=== PATIENT | male | born 1975 | race Two or more races ===

== ENCOUNTER 2022-08-03 16:20 | Emergency (ER) | payer OTHER ==
[~2022-08-03] VITALS: Ht 170.2 cm; Wt 108.9 kg
[2022-08-03] MEDS ORDERED: ZESTRIL5 MG PO (16:39)
[2022-08-03] MEDS ORDERED: TENORMIN25 MG PO (16:39)
[2022-08-03] MEDS ORDERED: RAYOS2 MG PO (16:40)
== END 2022-08-03 20:18 | disposition home or self-care (01) ==
LOC: ER 16:20
DX: M10.9 Gout, unspecified (principal); Z91.018 Allergy to other foods